=== PATIENT | female | born 1990 ===

== ENCOUNTER 2019-04-08 17:45 | Emergency (ER) | payer SELFPAY ==
[2019-04-08 17:55] VITALS: BP 102/60; PULSE 93; TEMP 98.6; BMI 25.5
[2019-04-08] MEDS ORDERED: KETOROLAC TROMETHAMINE 60 MG/2 ML VIAL IM ONE (18:10)
--- NOTE | 2019-04-08 18:15 | PDOC ---
History of Present Illness - General Chief Complaint: Injury Stated Complaint: FALL/BACK PAIN/R RING FINGER INJURY Time Seen by Provider: 04/08/19 17:56 History Source: Patient (back and right 4th finger pain s/p fall while skate boarding yesterday) Past History - Travel Traveled outside of the country in the last 30 days: No - Past Medical History Allergies/Adverse Reactions: Allergies Allergy/AdvReac Type Severity Reaction Status Date / Time No Known Allergies Allergy Verified 04/08/19 17:55 COPD: No Other medical history: hernia - Suicide/Smoking/Psychosocial Hx Smoking History: Never smoked Review of Systems - Review of Systems Constitutional: No: Chills, Fever Cardiac (ROS): No: Chest Pain Musculoskeletal: Yes: Back Pain. No: Muscle Pain, Muscle Weakness Neurological: No: Headache, Numbness, Tingling, Weakness, Unsteady Gait, Ataxia , Dizziness *Physical Exam - Vital Signs Last Vital Signs Temp Pulse Resp BP Pulse Ox 98.6 F 93 H 18 102/60 96 04/08/19 17:52 04/08/19 17:52 04/08/19 17:52 04/08/19 17:52 04/08/19 17:52 - Physical Exam General Appearance: Yes: Nourished Musculoskeletal: positive: Muscle Spasm (left mid back) Extremity: positive: Normal Capillary Refill, Normal Range of Motion, Other (R 4th finger: + healing avulsed skin noted in finger pad, no active bleeding noted , FROM, ) Neurologic: positive: compugraph operator II-XII NML intact, Fully Oriented, Alert, Normal Mood/ Affect, Normal Response, Motor Strength 5/5 ED Treatment Course - RADIOLOGY Radiology Studies Ordered: Category Date Time Status FINGER(S) RIGHT [RAD] Stat Radiology 04/08/19 18:11 Ordered SPINE-LUMBAR SACRAL [RAD] DAILY Radiology 04/09/19 10:00 Ordered SPINE-THORACIC [RAD] Stat Radiology 04/08/19 18:10 Ordered Medical Decision Making - Medical Decision Making 27y/o F with mid/lower back pain, right 4th finger tip avulsion after falling while skateboarding yesterday denies LOC or head trauma pt did not take anything for pain tetanus is UTD Finger pad with healing avulsed skin cleansed and dressed xray for back and finger placed toradol ordered for pain pt walked out of ED before the above orders can be carried out. *DC/Admit/Observation/Transfer Diagnosis at time of Disposition: Back pain Qualifiers: Back pain location: low back pain Chronicity: acute Back pain laterality: unspecified Sciatica presence: without sciatica Qualified Code(s): M54.5 - Low back pain Avulsion of skin of finger Qualifiers: Encounter type: initial encounter Qualified Code(s): S61.209A - Unspecified open wound of unspecified finger without damage to nail, initial encounter - Discharge Dispostion Disposition: ELOPED - Referrals - Patient Instructions - Post Discharge Activity
== END 2019-04-08 18:10 | disposition home or self-care (01) ==
LOC: JERFT 17:45
DX: M54.5 Low back pain (principal); S61.209A Unspecified open wound of unspecified finger without damage to nail, initial encounter
CPT/HCPCS: 99283-25